=== PATIENT | male | born 1955 | race Caucasian/White ===

== ENCOUNTER 2024-03-05 08:14 | Emergency (ER) | payer OTHER ==
[~2024-03-05] VITALS: Ht 180.3 cm; Wt 81.8 kg
[2024-03-05 08:24] VITALS: TEMP 98.4
[2024-03-05] MEDS ORDERED: LOSA-382 PO (08:26)
[2024-03-05] MEDS ORDERED: ATEN-72 PO (08:26)
[2024-03-05] MEDS ORDERED: TAMS0.4C94 PO (08:26)
[2024-03-05] MEDS ORDERED: SIMV-259 PO (08:26)
[2024-03-05] MEDS: PredniSONE 20 MG TABLET PO ONE (09:20)
[2024-03-05] MEDS: ValACYclovir HCL 500 MG TABLET PO ONE (09:20)
[2024-03-05] MEDS: FAMOTIDINE 20 MG TABLET PO ONE (09:20)
[2024-03-05] MEDS: PEG 400/HYPROMELLOSE/GLYCERIN 15 ML OPHTHALMIC SOLUTION OS ONE (09:21)
[2024-03-05] MEDS: NEOMYCIN/BACITRACIN/POLYMYXIN B 3.5 GM OPHTHALMIC OINTMENT OS ONE (09:55)
[2024-03-05] MEDS ORDERED: VALA500T42 PO (10:28)
[2024-03-05] MEDS ORDERED: PRED-554 PO (10:28)
[2024-03-05 10:30] VITALS: BP 140/68; PULSE 60; RESP 14
== END 2024-03-05 10:51 | disposition home or self-care (01) ==
LOC: EMS 08:15
DX: G51.0 Bell's palsy (principal); E78.00 Pure hypercholesterolemia, unspecified; I10 Essential (primary) hypertension; Z88.6 Allergy status to analgesic agent
CPT/HCPCS: 99284; J7512